=== PATIENT | male | born 1965 | race Caucasian/White ===

== ENCOUNTER 2017-07-10 15:26 | Emergency (ER) | payer SELFPAY ==
[2017-07-10] MEDS ORDERED: Bacitracin Zinc 1 Packet ONE (16:23)
== END 2017-07-10 16:41 | disposition home or self-care (01) ==
LOC: ERS 15:26
DX: L03.116 Cellulitis of left lower limb (principal); I10 Essential (primary) hypertension; F17.220 Nicotine dependence, chewing tobacco, uncomplicated
CPT/HCPCS: 99406